=== PATIENT | male | born 1980 | race American Indian/Alaskan Native ===

== ENCOUNTER 2019-01-15 10:16 | Emergency (ER) | payer OTHER ==
[2019-01-15] MEDS ORDERED: BOOSTRIX IM ONE (10:38)
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
--- NOTE | 2019-01-15 11:18 | XRay Report ---
RIGHT WRIST, 4 VIEWS: History: Pain. Routine views demonstrate the carpal bones to be well mineralized with well preserved bony mineralization and interosseous joint spaces. The carpal and adjacent articular bones have normal contours. The surrounding soft tissues are unremarkable. IMPRESSION: Unremarkable right wrist.
[2019-01-15 11:47] VITALS: BP 138/88
== END 2019-01-15 11:52 | disposition home or self-care (01) ==
LOC: ED 10:16
DX: S61.531A Puncture wound without foreign body of right wrist, initial encounter (principal); X78.0XXA Intentional self-harm by sharp glass, initial encounter; Y93.89 Activity, other specified; Y92.019 Unspecified place in single-family (private) house as the place of occurrence of the external cause; Y99.8 Other external cause status
CPT/HCPCS: 90471; 90715

== ENCOUNTER 2019-01-16 01:37 | Emergency (ER) | payer SELFPAY ==
[2019-01-16 02:39] LABS: Basophils % (Auto) 0.5 % (0.0-1.8); Eosinophils % (Auto) 0.4 % (0.0-4.3); Hematocrit 43.6 % (35.5-45.6); Hemoglobin 15.2 gm/dl (11.8-15.2); Lymphocytes # (Auto) 1.8 K/mm3 (1.2-5.4); Mean Corpuscular HGB Conc 35 % (32-34); Mean Corpuscular Volume 88 fl (84-94); Monocytes # (Auto) 0.4 K/mm3 (0.0-0.8); Monocytes % (Auto) 7.7 % (0.0-7.3); Platelet Count 200 K/mm3 (140-440); Red Blood Count 4.94 M/mm3 (3.65-5.03); Red Cell Distribution Width 14.3 % (13.2-15.2)
[2019-01-16 02:41] LABS: Bilirubin,Urine NEG (Negative); Blood,Urine NEG (Negative); Color,Urine Amber (Yellow); Mucus,Urine 3+ /HPF
[2019-01-16 02:44] LABS: Benzodiazepines Screen,Urine PRESUMPTIVE NEGATIVE; Cannabinoid Screen,Urine PRESUMPTIVE NEGATIVE; Cocaine Screen,Urine PRESUMPTIVE NEGATIVE; Methadone Screen,Urine PRESUMPTIVE NEGATIVE; Opiate Screen,Urine PRESUMPTIVE NEGATIVE
[2019-01-16 02:51] LABS: BUN/Creatinine Ratio 10; Blood Urea Nitrogen 12 mg/dL (9-20); Calcium 9.5 mg/dL (8.4-10.2); Hemolysis Index 10
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
--- NOTE | 2019-01-16 03:15 | Cat Scan Report ---
PROCEDURE: CT HEAD/BRAIN WO CON TECHNIQUE: Computerized tomography of the head was performed without contrast material. CT DOSE LENGTH PRODUCT: mGycm HISTORY: new onset psychosis COMPARISONS: None . FINDINGS: Skull and scalp: Normal . Paranasal sinuses: Normal . Ventricles and subarachnoid spaces: Normal . Cerebrum: No evidence of hemorrhage, acute infarction or mass . Cerebellum and brainstem: No evidence of hemorrhage, acute infarction or mass . Vasculature: Normal . IMPRESSION: Normal Examination . This document is electronically signed by Philip Yates MD., January 16 2019 03:12:48 AM ET
[2019-01-16 03:16] LABS: Amphetamine Screen,Urine PRESUMPTIVE POSITIVE
[2019-01-16] MEDS ORDERED: K-DUR PO ONE (04:42)
[2019-01-16] MEDS: TIVICAY PO SCH (10:10)
[2019-01-16] MEDS: NON-FORMULARY (Emtricitabine/Tenofov Alafenam [Descovy 200-25 Mg Tablet] 1 EACH) PO SCH (10:10)
[2019-01-16] MEDS: POLYSPORIN TP SCH ×2 (10:10→21:51)
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
[2019-01-17] MEDS: BACTRIM DS PO SCH ×3 (02:47→22:24)
[2019-01-17] MEDS: TIVICAY PO SCH (11:37)
[2019-01-17] MEDS: POLYSPORIN TP SCH ×2 (11:38→21:34)
[2019-01-17] MEDS: NON-FORMULARY (Emtricitabine/Tenofov Alafenam [Descovy 200-25 Mg Tablet] 1 EACH) PO SCH (11:38)
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
--- NOTE | 2019-01-18 10:09 | Progress Note ---
Subjective - Reason for Consult Consult date: 01/18/19 Reason for consult: Psychiatry Follow-up - Chief Complaint Chief complaint: "I feel fine" 38-year-old AA male who presented to the ER for bizarre behavior. Today the patient is calm and cooperative during the assessment. He stated that he spoke with his partner and informed him that their relationship is over. He stated, "I feel much better now about my situation." He denies that someone is trying to poison him. He denies SI/HI's and AVH's. He is adamant that he will not use recreational drugs anymore. Mental Status Exam - Vital signs Last Vital Signs Temp 98.8 F 01/18/19 07:16 Pulse 69 01/18/19 07:16 Resp 16 01/18/19 07:16 BP 110/68 01/18/19 07:16 Pulse Ox 100 01/18/19 07:16 - Exam Narrative exam: MSE: Appearance: calm, cooperative Behavior: regular eye contact Speech: regular rate and tone Mood: "okay" Affect: congruent to mood Thought Process: linear Thought Content: denies SI/HI's and AVH's Motor Activity: lying in bed Cognition: A/O x3 Insight: appropriate Judgment: appropriate Assessment and Plan Impression: Unspecified Psychosis. Substance Use DO (amphetamines). Today the patient is irritable during the assessment. The patient psychosis has resolved. DDx: Substance Induced Psychosis Recommendation/Plan: Rescind 1013. Discussed the importance to abstain from recreational drug use, he verbalized understanding. Dispo: The patient can follow up with [facility] for outpatient rehab services. Will staff with Dr Blessing Mahmood.
[2019-01-18] MEDS: BACTRIM DS PO SCH (11:34)
[2019-01-18] MEDS: TIVICAY PO SCH (11:34)
[2019-01-18] MEDS: NON-FORMULARY (Emtricitabine/Tenofov Alafenam [Descovy 200-25 Mg Tablet] 1 EACH) PO SCH (11:34)
[2019-01-18] MEDS: POLYSPORIN TP SCH (11:34)
[2019-01-18] MEDS ORDERED: TRIPLE ANTIBIOTIC TP ONE (11:47)
--- NOTE | 2019-01-18 13:28 | Emergency Department Report ---
Blank Doc - Documentation Documentation: I was asked to evaluate the patient for discharge. Patient was admitted to the ER for substance abuse psychosis. Patient is calm, alert oriented 3 in no acute distress. Patient denied any visual or auditory hallucination. No suicidal or homicidal thoughts. Patient stated that he is looking forward to go home. Patient has been assessed by her psychiatric team and advised patient to be discharged home. Patient discharged home in a clinically and psychiatrically stable situation.
[2019-01-18 13:36] VITALS: BP 109/71
== END 2019-01-18 14:02 ==
LOC: ED 01:37 → EEVIPCON 01:37 → ED 01-18 14:02
DX: S61.431A Puncture wound without foreign body of right hand, initial encounter (principal); F22 Delusional disorders; B20 Human immunodeficiency virus [HIV] disease; E87.6 Hypokalemia; Z87.891 Personal history of nicotine dependence; W22.8XXA Striking against or struck by other objects, initial encounter; Y93.89 Activity, other specified; Y92.89 Other specified places as the place of occurrence of the external cause; Y99.8 Other external cause status
CPT/HCPCS: 36415; 70450; 80048; 80307; 81001; 84132; 85025; 99285; G0480; 80320; A6250